=== PATIENT | male | born 1945 | race Caucasian/White ===

== ENCOUNTER 2018-04-21 10:57 | Emergency (ER) | payer OTHER ==
[~2018-04-21] VITALS: Ht 162.6 cm; Wt 77.1 kg
[~2018-04-21 10:57] MED LIST: FELODIPINE ER10 MG; ZOCOR5 MG
[2018-04-21] MEDS ORDERED: LOPRESSOR HCT1 EACH (11:32)
[2018-04-21] MEDS ORDERED: NORVASC10 MG (11:32)
== END 2018-04-21 18:16 | disposition home or self-care (01) ==
LOC: ER 10:57
DX: S90.31XA Contusion of right foot, initial encounter (principal); W18.39XA Other fall on same level, initial encounter; Y93.89 Activity, other specified; Y92.89 Other specified places as the place of occurrence of the external cause; Y99.8 Other external cause status

== ENCOUNTER 2025-04-12 11:20 | Inpatient (IN) | payer OTHER ==
[~2025-04-12] VITALS: Ht 152.4 cm; Wt 54.4 kg
[~2025-04-12 11:20] MED LIST changes: +LOPRESSOR HCT1 EACH; +NORVASC10 MG
--- NOTE | 2025-04-12 11:46 | NUR ---
PACIENTE ALERTA Y ORIENTADO X3 ACOMPANADO HIJA REFIERE DEBILIDAD, MAEROS Y DEFIFCULTAD EN LA DEGLUCION. SE MELANIE S/V Y SE UBICA.
[2025-04-12] MEDS ORDERED: 0.9 % SODIUM CHLORIDE 500 ML IV ONE (14:45)
[2025-04-12 15:35] LABS: BASO % 0.3 % (0.1-1.2); EOS # 0.08 (0.04-0.54); EOS % 0.8 % (0.7-7.0); LYMPH # 0.80 (1.18-3.74); LYMPH % 7.8 % (19.3-53.1); MEAN PLATELET VOLUME 8.90 fl (9.4-12.4); MONO # 0.66 (0.24-0.82); MONO % 6.4 % (4.7-12.5); NEUT # 8.65 (1.56-6.13); NEUT % 84.2 % (34.0-71.1); RED CELL DISTRIBUTION WIDTH 15.9 % (11.6-14.4)
[2025-04-12 15:56] LABS: COVID-19 AG NEGATIVE (NEGATIVE)
[2025-04-12 16:08] LABS: INR 1.11
--- NOTE | 2025-04-12 16:10 | NUR ---
SE EDUCA FAMILIAR SOBRE EL [place] MEDICO Y KERLINE REFIERE ENTENDER. PACIENTE CANALIZADO EN AMBULANCIA EN ANTEBRAZO DERECHO # 18 PATENTE Y CATHY DE DOLOR SE COLOCA IVFS. SE AYSE MUESTRAS DE LABORATORIOS Y SE ENVIAN. SE ENTREGA ENVASE DE U/A
[2025-04-12 16:16] LABS: ALT/SGPT 12.0 U/L (12-78); AST/SGOT 15.0 U/L (15-37); BILIRUBIN TOTAL 0.66 mg/dL (0.3-1.2); BUN CREA RATIO 30.0 (7.0-25.0); CREATININE SERUM 1.16 mg/dL (0.70-1.30); GFR 60.58; GLOBULINA 4.1 G/DL (2.4-3.5); GLUCOSE FASTING 97.0 mg/dL (65-100); OSMOLALITY SERUM 289.0 MOSM/KG (275-295)
[2025-04-12] MEDS ORDERED: PANTOPRAZOLE SODIUM 40 MG in 0.9 % SODIUM CHLORIDE 8 ML IV PUSH SCH (19:06)
[2025-04-12] MEDS ORDERED: CLOPIDOGREL BISULFATE 75 MG TABLET PO SCH (19:10)
[2025-04-12] MEDS ORDERED: ATORVASTATIN CALCIUM 40 MG TABLET PO SCH (19:11)
[2025-04-12] MEDS ORDERED: ONDANSETRON HCL 4 MG in DEXTROSE 5 % IN WATER 50 ML IV SCH (19:13)
[2025-04-12] MEDS ORDERED: DEXTROSE 5 %-0.45 % SOD CHLORD 1,000 ML IV SCH (19:15)
[2025-04-12] MEDS ORDERED: hydrALAZINE HCL 20 MG VIAL IV PRN (19:15)
[2025-04-12] MEDS ORDERED: MORPHINE SULFATE 2 MG/ML SYRINGE IV PRN (19:15)
[2025-04-12 21:00] VITALS: BP 110/70
[2025-04-12 21:42] LABS: URINE APPEARANCE Clear; URINE BILIRRUBIN Negative (NEGATIVE); URINE BLOOD Negative; URINE COLOR Yellow; URINE KETONE Trace (NEGATIVE); URINE LEUKOCYTE Negative; URINE NITRATE Negative; URINE PROTEIN Trace (NEGATIVE); URINE UROBILINOGEN 1.0 E.U./dl
[2025-04-12 21:46] LABS: URINE BACTERIA 9.5 uL (0.0-1933); URINE EPITHELIAL CELLS 4.7 uL (0.0-38.8); URINE RBC 3.0 uL (0.0-20.8); URINE WBC 3.6 uL (0.0-23.2)
[2025-04-12 21:49] LABS: URINE CAST 1.02 uL (0.0-1.40); URINE GLUCOSE 250 MG/DL (NEGATIVE)
[2025-04-13 07:00] VITALS: BP 121/61; O2SAT 100
[2025-04-14 03:02] VITALS: BP 127/73; O2SAT 98
[2025-04-14 09:24] VITALS: BP 138/71; O2SAT 95
[2025-04-14 18:15] VITALS: BP 144/76; O2SAT 97
[2025-04-14 19:14] LABS: BASO % 0.2 % (0.1-1.2); EOS # 0.02 (0.04-0.54); EOS % 0.1 % (0.7-7.0); LYMPH # 0.48 (1.18-3.74); LYMPH % 2.8 % (19.3-53.1); MEAN PLATELET VOLUME 8.80 fl (9.4-12.4); MONO # 0.78 (0.24-0.82); MONO % 4.6 % (4.7-12.5); NEUT # 15.61 (1.56-6.13); NEUT % 91.5 % (34.0-71.1); RED CELL DISTRIBUTION WIDTH 15.4 % (11.6-14.4)
[2025-04-15 00:25] VITALS: BP 126/78; O2SAT 99
[2025-04-15] MEDS ORDERED: ENOXAPARIN SODIUM 30 MG/0.3 ML SYRINGE SUBCUTANEO SCH (09:00)
[2025-04-15 10:04] VITALS: BP 130/71; O2SAT 91
[2025-04-15] MEDS ORDERED: CEFAZOLIN SODIUM 1,000 MG VIAL ONE (13:59)
[2025-04-15] MEDS ORDERED: LIDOCAINE HCL 1%/EPINEPHRINE 20ML VIAL IJ ONE ×2 (14:38)
[2025-04-15 20:25] VITALS: BP 123/74; O2SAT 95
[2025-04-16 03:59] VITALS: BP 134/75; O2SAT 97
[2025-04-16 10:04] VITALS: BP 132/87; O2SAT 95
[2025-04-16 20:40] VITALS: BP 152/75; O2SAT 96
[2025-04-16 21:47] VITALS: O2SAT 90
[2025-04-17] VITALS (7 sets, daily range): BP systolic 122–188; BP diastolic 60–90; O2SAT 88–99
[2025-04-17] MEDS ORDERED: ONDANSETRON HCL 2 MG/ML VIAL ONE (15:20)
== END 2025-04-17 20:00 | disposition home or self-care (01) | DRG 376 ==
LOC: ER 11:20 → SEC-K 20:46 → MEDI 20:46 → SEC-K 20:49 → MEDI 04-13 16:10
PROVIDERS: General Practice; Student in an Organized Health Care Education/Training Program; ADMIT Internal Medicine; ATTEND Internal Medicine
PROC: BW21ZZZ Computerized Tomography (CT Scan) of Abdomen and Pelvis (ICD-10-PCS; 2025-04-12)
PROC: 4A12X4Z Monitoring of Cardiac Electrical Activity, External Approach (ICD-10-PCS; 2025-04-13)
PROC: 30233N1 Transfusion of Nonautologous Red Blood Cells into Peripheral Vein, Percutaneous Approach (ICD-10-PCS; 2025-04-13)
PROC: 0DH60UZ Insertion of Feeding Device into Stomach, Open Approach (ICD-10-PCS; principal; 2025-04-15 14:15)
DX: C15.9 Malignant neoplasm of esophagus, unspecified (principal); D64.9 Anemia, unspecified; R13.19 Other dysphagia; I50.9 Heart failure, unspecified; I10 Essential (primary) hypertension

== ENCOUNTER 2025-05-11 13:07 | Inpatient (IN) | payer OTHER ==
[~2025-05-11] VITALS: Ht 165.1 cm; Wt 54.4 kg
[2025-05-11] MEDS ORDERED: 0.9 % SODIUM CHLORIDE 1,000 ML IV SCH (14:45)
[2025-05-11] MEDS ORDERED: ALBUTEROL SULFATE 3 ML/2.5 MG AMPUL.NEB IH SCH (15:00)
[2025-05-11] MEDS ORDERED: IPRATROPIUM BROMIDE 0.5 MG/2.5 ML AMPUL.NEB IH SCH ×2 (15:00→21:48)
[2025-05-11 16:18] LABS: BASO % 0.2 % (0.1-1.2); EOS # 0.01 (0.04-0.54); EOS % 0.1 % (0.7-7.0); LYMPH # 0.50 (1.18-3.74); LYMPH % 2.6 % (19.3-53.1); MEAN PLATELET VOLUME 8.50 fl (9.4-12.4); MONO # 1.51 (0.24-0.82); MONO % 8.0 % (4.7-12.5); NEUT # 16.74 (1.56-6.13); NEUT % 88.4 % (34.0-71.1); RED CELL DISTRIBUTION WIDTH 15.9 % (11.6-14.4)
[2025-05-11 16:25] LABS: INR 1.29
[2025-05-11 16:39] LABS: ALT/SGPT 145.0 U/L (12-78); AST/SGOT 188.0 U/L (15-37); BILIRUBIN TOTAL 0.49 mg/dL (0.3-1.2); CREATININE SERUM 1.78 mg/dL (0.70-1.30); GFR 36.96; GLOBULINA 5.1 G/DL (2.4-3.5); GLUCOSE FASTING 137.0 mg/dL (65-100)
[2025-05-11 16:46] LABS: BUN CREA RATIO 48.0 (7.0-25.0); OSMOLALITY SERUM 280.0 MOSM/KG (275-295)
[2025-05-11 16:49] LABS: URINE APPEARANCE Clear; URINE BILIRRUBIN Negative (NEGATIVE); URINE COLOR Yellow; URINE GLUCOSE Negative (NEGATIVE); URINE KETONE Negative (NEGATIVE); URINE LEUKOCYTE Negative; URINE NITRATE Negative; URINE PROTEIN Trace (NEGATIVE); URINE UROBILINOGEN 1.0 E.U./dl
[2025-05-11 16:53] LABS: URINE BACTERIA 8.3 uL (0.0-1933); URINE EPITHELIAL CELLS 12.4 uL (0.0-38.8); URINE RBC 16.5 uL (0.0-20.8); URINE WBC 3.8 uL (0.0-23.2)
[2025-05-11 17:10] LABS: COVID-19 AG NEGATIVE (NEGATIVE)
[2025-05-11 17:14] LABS: URINE CAST 1.17 uL (0.0-1.40)
[2025-05-11 17:19] LABS: URINE BLOOD Traces; URINE MUCUS SCANT
[2025-05-11 17:20] LABS: TYPE CELLS SQUAMOUS
[2025-05-11] MEDS ORDERED: CEFTRIAXONE SODIUM 2,000 MG VIAL IV ONE (19:45)
[2025-05-11] MEDS ORDERED: CEFTRIAXONE SODIUM 2,000 MG VIAL ONE (21:10)
[2025-05-11] MEDS ORDERED: ALBUMIN HUMAN-25 0.25GM/ML (50ML) VIAL IV SCH (21:49)
[2025-05-11] MEDS ORDERED: AZITHROMYCIN 500 MG in DEXTROSE 5 % IN WATER 250 ML IV SCH (21:50)
[2025-05-11] MEDS ORDERED: AMINO ACIDS/PROTEIN HYDROLYS 30 ML BLIST.PACK PO SCH (21:54)
[2025-05-11] MEDS ORDERED: ACETAMINOPHEN 500 MG GEL..CAP PO PRN (22:00)
[2025-05-11] MEDS ORDERED: DEXTROSE 50 % IN WATER 0.5 G/ML VIAL IV ONE (22:00)
[2025-05-11] MEDS ORDERED: INSULIN REGULAR, HUMAN 1,000 UNIT/10 ML UNITS IV ONE (22:00)
[2025-05-11] MEDS ORDERED: SODIUM POLYSTYRENE SULFONATE 30G/8 TSP PO ONE (22:00)
[2025-05-11] MEDS ORDERED: CALCIUM GLUCONATE 100 MG/ML VIAL IV ONE (22:00)
[2025-05-12] MEDS ORDERED: IPRATROPIUM BROMIDE 0.5 MG/2.5 ML AMPUL.NEB IH ONE ×3 (01:54→17:15)
[2025-05-12] MEDS ORDERED: SODIUM POLYSTYRENE SULFONATE 15 G/4 TSP TSP ONE (02:41)
[2025-05-12] MEDS ORDERED: CALCIUM GLUCONATE 100 MG/ML VIAL ONE (02:41)
[2025-05-12 05:25] LABS: INR 1.29
[2025-05-12 06:00] LABS: TSH 1.79 uIU/mL (0.358-3.74)
[2025-05-12 07:15] VITALS: BP 100/52; O2SAT 100
[2025-05-12] MEDS ORDERED: CEFTRIAXONE SODIUM 2,000 MG in 0.9 % SODIUM CHLORIDE 100 ML IV SCH (09:00)
[2025-05-12] MEDS ORDERED: PIPERACILLIN/TAZOBACTAM SODIUM 3.375 GM in DEXTROSE 5 % IN WATER 100 ML IV SCH (14:14)
[2025-05-12] MEDS ORDERED: FLUCONAZOLE IN NACL,ISO-OSM 200 MG/100 ML PIGGYBAG IV NR (15:30)
[2025-05-12] MEDS ORDERED: PIPERACILLIN/TAZOBACTAM SODIUM 3.375 GM VIAL IV ONE (16:55)
[2025-05-12 19:28] LABS: ob POSITIVE (NEGATIVE)
[2025-05-12 23:42] VITALS: BP 128/65; O2SAT 100
[2025-05-13] MEDS ORDERED: IPRATROPIUM BROMIDE 0.5 MG/2.5 ML AMPUL.NEB IH ONE ×2 (00:46→08:31)
[2025-05-13 08:55] VITALS: BP 100/60; O2SAT 100
[2025-05-13 10:17] LABS: BASO % 0.2 % (0.1-1.2); EOS # 0.03 (0.04-0.54); EOS % 0.1 % (0.7-7.0); LYMPH # 0.56 (1.18-3.74); LYMPH % 2.8 % (19.3-53.1); MEAN PLATELET VOLUME 8.40 fl (9.4-12.4); MONO # 0.95 (0.24-0.82); MONO % 4.7 % (4.7-12.5); NEUT # 18.37 (1.56-6.13); NEUT % 91.5 % (34.0-71.1); RED CELL DISTRIBUTION WIDTH 16.3 % (11.6-14.4)
[2025-05-13 11:07] LABS: ALT/SGPT 108.0 U/L (12-78); AST/SGOT 108.0 U/L (15-37); BILIRUBIN TOTAL 0.73 mg/dL (0.3-1.2); CREATININE SERUM 1.69 mg/dL (0.70-1.30); GFR 39.24; GLOBULINA 5.1 G/DL (2.4-3.5); GLUCOSE FASTING 76.0 mg/dL (65-100)
[2025-05-13 11:08] LABS: BUN CREA RATIO 56.0 (7.0-25.0); OSMOLALITY SERUM 290.0 MOSM/KG (275-295)
[2025-05-13] MEDS ORDERED: FLUCONAZOLE IN NACL,ISO-OSM 50 ML IV SCH (12:00)
[2025-05-13] MEDS ORDERED: FLUCONAZOLE IN NACL,ISO-OSM 2 MG/ML ML IV SCH (12:00)
[2025-05-13 13:24] VITALS: O2SAT 92
[2025-05-13 16:24] VITALS: O2SAT 95
[2025-05-13] MEDS ORDERED: VANCOMYCIN HCL 5 MG/ML REDILUIDO IV SCH (17:00)
[2025-05-13 18:47] VITALS: BP 114/68
[2025-05-13 18:48] VITALS: BP 114/68
[2025-05-13] MEDS ORDERED: MEROPENEM 500 MG/VIAL VIAL IV SCH (21:00)
[2025-05-13 21:20] VITALS: O2SAT 91
[2025-05-14] VITALS (9 sets, daily range): BP systolic 115–133; BP diastolic 55–67; O2SAT 88–100
[2025-05-14] MEDS ORDERED: AZITHROMYCIN 500 MG VIAL IV SCH (09:00)
[2025-05-14] MEDS ORDERED: AZITHROMYCIN 500 MG VIAL IV ONE (10:08)
[2025-05-14 14:03] LABS: BASO % 0.1 % (0.1-1.2); EOS # 0.04 (0.04-0.54); EOS % 0.2 % (0.7-7.0); LYMPH # 0.54 (1.18-3.74); LYMPH % 2.3 % (19.3-53.1); MEAN PLATELET VOLUME 8.50 fl (9.4-12.4); MONO # 1.33 (0.24-0.82); MONO % 5.7 % (4.7-12.5); NEUT # 21.10 (1.56-6.13); NEUT % 90.8 % (34.0-71.1); RED CELL DISTRIBUTION WIDTH 16.4 % (11.6-14.4)
[2025-05-14 14:23] LABS: BUN CREA RATIO 56.0 (7.0-25.0); CREATININE SERUM 1.7 mg/dL (0.70-1.30); GFR 38.97; GLUCOSE FASTING 115.0 mg/dL (65-100); OSMOLALITY SERUM 304.0 MOSM/KG (275-295)
[2025-05-15] VITALS (9 sets, daily range): BP systolic 105–148; BP diastolic 61–75; O2SAT 93–98
[2025-05-15] MEDS ORDERED: AZITHROMYCIN 500 MG VIAL IV ONE (08:06)
[2025-05-16] VITALS (9 sets, daily range): BP systolic 121–140; BP diastolic 70–76; O2SAT 90–100
[2025-05-16 07:55] LABS: BASO % 0.2 % (0.1-1.2); EOS # 0.12 (0.04-0.54); EOS % 0.7 % (0.7-7.0); LYMPH # 0.64 (1.18-3.74); LYMPH % 3.9 % (19.3-53.1); MEAN PLATELET VOLUME 8.50 fl (9.4-12.4); MONO # 1.23 (0.24-0.82); MONO % 7.5 % (4.7-12.5); NEUT # 14.22 (1.56-6.13); NEUT % 87.0 % (34.0-71.1); RED CELL DISTRIBUTION WIDTH 16.2 % (11.6-14.4)
[2025-05-16 08:33] LABS: ALT/SGPT 59.0 U/L (12-78); AST/SGOT 47.0 U/L (15-37); BILIRUBIN TOTAL 0.34 mg/dL (0.3-1.2); CREATININE SERUM 1.18 mg/dL (0.70-1.30); GFR 59.39; GLOBULINA 4.1 G/DL (2.4-3.5); GLUCOSE FASTING 145.0 mg/dL (65-100)
[2025-05-16 08:34] LABS: BUN CREA RATIO 71.0 (7.0-25.0); OSMOLALITY SERUM 317.0 MOSM/KG (275-295)
[2025-05-16] MEDS ORDERED: AZITHROMYCIN 500 MG VIAL IV ONE (08:34)
[2025-05-17] VITALS (9 sets, daily range): BP systolic 142–160; BP diastolic 72–74; O2SAT 65–100
[2025-05-17] MEDS ORDERED: POTASSIUM CHLORIDE/D5W 20 MEQ/1,000 ML PIGGYBAG IV SCH (12:00)
[2025-05-17 15:05] LABS: BUN CREA RATIO 83.0 (7.0-25.0); CREATININE SERUM 0.9 mg/dL (0.70-1.30); GFR 81.19; GLUCOSE FASTING 121.0 mg/dL (65-100); OSMOLALITY SERUM 316.0 MOSM/KG (275-295)
[2025-05-17] MEDS ORDERED: POTASSIUM CHLORIDE 20MEQ/100ML H2O PB IV SCH (18:00)
[2025-05-17] MEDS ORDERED: SODIUM CHLORIDE 0.45 % 1,000 ML IV SCH (18:15)
[2025-05-18] VITALS (9 sets, daily range): BP systolic 129–146; BP diastolic 70–77; O2SAT 96–100
[2025-05-18 06:44] LABS: BASO % 0.3 % (0.1-1.2); EOS # 0.14 (0.04-0.54); EOS % 1.0 % (0.7-7.0); LYMPH # 0.55 (1.18-3.74); LYMPH % 4.1 % (19.3-53.1); MEAN PLATELET VOLUME 8.60 fl (9.4-12.4); MONO # 1.04 (0.24-0.82); MONO % 7.7 % (4.7-12.5); NEUT # 11.63 (1.56-6.13); NEUT % 86.3 % (34.0-71.1); RED CELL DISTRIBUTION WIDTH 16.3 % (11.6-14.4)
[2025-05-18 08:06] LABS: ALT/SGPT 70.0 U/L (12-78); AST/SGOT 89.0 U/L (15-37); BILIRUBIN TOTAL 0.36 mg/dL (0.3-1.2); BUN CREA RATIO 74.0 (7.0-25.0); CREATININE SERUM 0.97 mg/dL (0.70-1.30); GFR 74.47; GLOBULINA 4.4 G/DL (2.4-3.5); GLUCOSE FASTING 141.0 mg/dL (65-100); OSMOLALITY SERUM 316.0 MOSM/KG (275-295)
[2025-05-18] MEDS ORDERED: FLUCONAZOLE IN NACL,ISO-OSM 200 MG/100 ML PIGGYBAG IV NR (14:00)
[2025-05-19] VITALS (11 sets, daily range): BP systolic 132–136; BP diastolic 74–87; O2SAT 90–99
[2025-05-19] MEDS ORDERED: ACETYLCYSTEINE 200 MG/ML 30ML VIAL IH SCH (12:00)
[2025-05-19] MEDS ORDERED: ALBUTEROL SULFATE 3 ML/2.5 MG AMPUL.NEB IH SCH (12:00)
[2025-05-19] MEDS ORDERED: MEROPENEM 500 MG/VIAL VIAL IV SCH (14:00)
[2025-05-19] MEDS ORDERED: METOPROLOL TARTRATE 5MG/5ML AMPUL IV PRN (23:45)
[2025-05-19] MEDS ORDERED: METOPROLOL TARTRATE 5MG/5ML AMPUL IV STA (23:53)
[2025-05-20] VITALS (14 sets, daily range): BP systolic 113–146; BP diastolic 76–100; O2SAT 95–100
[2025-05-20] MEDS ORDERED: NOREPINEPHRINE BITARTRATE 1 MG/ML AMPUL IV ONE (07:26)
[2025-05-20] MEDS ORDERED: CHLORHEXIDINE GLUCONATE 15ML BRUSH KIT MM SCH (09:00)
[2025-05-20] MEDS ORDERED: POLYVINYL ALCOHOL 15 ML DROPS OP SCH (09:00)
[2025-05-20] MEDS ORDERED: EPINEPHRINE HCL/PF 1 MG/ML AMPUL IV SCH (09:30)
[2025-05-20 11:18] LABS: BASO % 0.2 % (0.1-1.2); EOS # 0.01 (0.04-0.54); EOS % 0.1 % (0.7-7.0); LYMPH # 0.28 (1.18-3.74); LYMPH % 1.7 % (19.3-53.1); MEAN PLATELET VOLUME 9.70 fl (9.4-12.4); MONO # 0.32 (0.24-0.82); MONO % 2.0 % (4.7-12.5); NEUT # 15.53 (1.56-6.13); NEUT % 94.6 % (34.0-71.1); RED CELL DISTRIBUTION WIDTH 17.8 % (11.6-14.4)
[2025-05-20 12:28] LABS: ALT/SGPT 160.0 U/L (12-78); AST/SGOT 253.0 U/L (15-37); BILIRUBIN TOTAL 0.44 mg/dL (0.3-1.2); BUN CREA RATIO 60.0 (7.0-25.0); CREATININE SERUM 1.29 mg/dL (0.70-1.30); GFR 53.59; GLOBULINA 5.1 G/DL (2.4-3.5); GLUCOSE FASTING 165.0 mg/dL (65-100); OSMOLALITY SERUM 319.0 MOSM/KG (275-295)
[2025-05-20] MEDS ORDERED: DILTIAZEM HCL 125MG/25ML VIAL IV ONE (14:06)
[2025-05-20] MEDS ORDERED: DILTIAZEM HCL 125 MG in 0.9 % SODIUM CHLORIDE 100 ML IV SCH (14:30)
[2025-05-21] VITALS (24 sets, daily range): BP systolic 111–153; BP diastolic 71–852; O2SAT 97–100
[2025-05-21 06:58] LABS: BASO % 0.2 % (0.1-1.2); EOS # 0.00 (0.04-0.54); EOS % 0.0 % (0.7-7.0); LYMPH # 0.53 (1.18-3.74); LYMPH % 2.7 % (19.3-53.1); MEAN PLATELET VOLUME 10.50 fl (9.4-12.4); MONO # 1.22 (0.24-0.82); MONO % 6.2 % (4.7-12.5); NEUT # 17.83 (1.56-6.13); NEUT % 90.2 % (34.0-71.1); RED CELL DISTRIBUTION WIDTH 17.8 % (11.6-14.4)
[2025-05-21 07:40] LABS: BUN CREA RATIO 71.0 (7.0-25.0); CREATININE SERUM 1.39 mg/dL (0.70-1.30); GFR 49.16; GLUCOSE FASTING 135.0 mg/dL (65-100); OSMOLALITY SERUM 322.0 MOSM/KG (275-295)
[2025-05-21] MEDS ORDERED: MEROPENEM 500 MG/VIAL VIAL IV SCH (21:00)
[2025-05-22] VITALS (23 sets, daily range): BP systolic 91–132; BP diastolic 57–84; O2SAT 92–100
[2025-05-23] VITALS (24 sets, daily range): BP systolic 103–130; BP diastolic 65–78; O2SAT 97–100
[2025-05-24] VITALS (22 sets, daily range): BP systolic 81–134; BP diastolic 57–81; O2SAT 97–100
[2025-05-24 06:52] LABS: BASO % 0.0 % (0.1-1.2); EOS # 0.00 (0.04-0.54); EOS % 0.0 % (0.7-7.0); LYMPH # 0.32 (1.18-3.74); LYMPH % 1.4 % (19.3-53.1); MEAN PLATELET VOLUME 11.30 fl (9.4-12.4); MONO # 1.04 (0.24-0.82); MONO % 4.6 % (4.7-12.5); NEUT # 21.12 (1.56-6.13); NEUT % 93.3 % (34.0-71.1); RED CELL DISTRIBUTION WIDTH 18.2 % (11.6-14.4)
[2025-05-24 07:21] LABS: ALT/SGPT 79.0 U/L (12-78); AST/SGOT 75.0 U/L (15-37); BILIRUBIN TOTAL 0.48 mg/dL (0.3-1.2); CREATININE SERUM 2.92 mg/dL (0.70-1.30); GFR 20.88; GLOBULINA 4.6 G/DL (2.4-3.5); GLUCOSE FASTING 143.0 mg/dL (65-100)
[2025-05-24 07:41] LABS: BUN CREA RATIO 56.0 (7.0-25.0); OSMOLALITY SERUM 350.0 MOSM/KG (275-295)
[2025-05-24] MEDS ORDERED: SODIUM POLYSTYRENE SULFONATE 30G/8 TSP PO SCH (18:00)
[2025-05-25] VITALS (22 sets, daily range): BP systolic 63–126; BP diastolic 41–77; O2SAT 97–100
[2025-05-25 07:33] LABS: BASO % 0.2 % (0.1-1.2); EOS # 0.00 (0.04-0.54); EOS % 0.0 % (0.7-7.0); LYMPH # 0.28 (1.18-3.74); LYMPH % 0.9 % (19.3-53.1); MEAN PLATELET VOLUME 11.60 fl (9.4-12.4); MONO # 1.31 (0.24-0.82); MONO % 4.1 % (4.7-12.5); NEUT # 29.83 (1.56-6.13); NEUT % 93.9 % (34.0-71.1); RED CELL DISTRIBUTION WIDTH 18.4 % (11.6-14.4)
[2025-05-25] MEDS ORDERED: NOREPINEPHRINE BITARTRATE 8 MG in DEXTROSE 5 % IN WATER 250 ML IV SCH (08:30)
[2025-05-25] MEDS ORDERED: DILTIAZEM HCL 125 MG in 0.9 % SODIUM CHLORIDE 100 ML IV SCH (13:00)
[2025-05-25] MEDS ORDERED: MEROPENEM 500 MG/VIAL VIAL IV SCH (21:00)
[2025-05-25] MEDS ORDERED: AMIODARONE HCL 900 MG/500 ML KIT IV ONE (22:07)
[2025-05-25] MEDS ORDERED: AMIODARONE HCL 900 MG in DEXTROSE 5 % IN WATER 500 ML IV SCH (22:15)
[2025-05-26] VITALS (25 sets, daily range): BP systolic 77–110; BP diastolic 35–63; O2SAT 93–100
[2025-05-26 07:43] LABS: URINE APPEARANCE Cloudy; URINE BILIRRUBIN Negative (NEGATIVE); URINE BLOOD Large; URINE COLOR Dark Yellow; URINE GLUCOSE Negative (NEGATIVE); URINE KETONE Trace (NEGATIVE); URINE LEUKOCYTE Small; URINE NITRATE Negative; URINE PROTEIN 30 (NEGATIVE); URINE UROBILINOGEN 0.2 E.U./dl
[2025-05-26 07:47] LABS: URINE BACTERIA 555.9 uL (0.0-1933); URINE CAST 4.10 uL (0.0-1.40); URINE EPITHELIAL CELLS 23.3 uL (0.0-38.8); URINE RBC 50.0 uL (0.0-20.8); URINE WBC 129.5 uL (0.0-23.2)
[2025-05-26 08:04] LABS: TYPE CELLS SQUAMOUS
[2025-05-26 08:05] LABS: URINE CRYSTALS MANY /HPF
[2025-05-26] MEDS ORDERED: AMIODARONE HCL 518 ML IV SCH (09:00)
[2025-05-27] VITALS (27 sets, daily range): BP systolic 66–121; BP diastolic 38–95; O2SAT 94–100
[2025-05-27] MEDS ORDERED: PHENYLEPHRINE HCL 10 MG/ML AMPUL ONE ×3 (03:53→20:57)
[2025-05-27] MEDS ORDERED: PHENYLEPHRINE HCL 20 MG in 0.9 % SODIUM CHLORIDE 250 ML IV SCH (04:15)
[2025-05-27] MEDS ORDERED: PHENYLEPHRINE HCL 80 MG in 0.9 % SODIUM CHLORIDE 1,000 ML IV SCH (10:30)
[2025-05-27 12:28] LABS: BASO % 0.2 % (0.1-1.2); EOS # 0.00 (0.04-0.54); EOS % 0.0 % (0.7-7.0); LYMPH # 0.34 (1.18-3.74); LYMPH % 1.4 % (19.3-53.1); MEAN PLATELET VOLUME 11.60 fl (9.4-12.4); MONO # 1.04 (0.24-0.82); MONO % 4.2 % (4.7-12.5); NEUT # 23.20 (1.56-6.13); NEUT % 92.8 % (34.0-71.1); RED CELL DISTRIBUTION WIDTH 18.2 % (11.6-14.4)
[2025-05-27 13:36] LABS: GFR 13.91; GLUCOSE FASTING 135.0 mg/dL (65-100)
[2025-05-27 13:38] LABS: BUN CREA RATIO 49.0 (7.0-25.0); OSMOLALITY SERUM 352.0 MOSM/KG (275-295)
[2025-05-27 13:40] LABS: CREATININE SERUM 4.15 mg/dL (0.70-1.30)
[2025-05-27] MEDS ORDERED: SODIUM POLYSTYRENE SULFONATE 30G/8 TSP NGT NR (14:00)
[2025-05-27] MEDS ORDERED: FLUCONAZOLE IN NACL,ISO-OSM 200 MG/100 ML PIGGYBAG IV NR (16:15)
[2025-05-27] MEDS ORDERED: FLUCONAZOLE IN NACL,ISO-OSM 2 MG/ML ML IV SCH (17:00)
[2025-05-28] VITALS (21 sets, daily range): BP systolic 71–111; BP diastolic 18–68; O2SAT 75–100
[2025-05-28] MEDS ORDERED: DOPamine HCL IN DEXTROSE 5 % 250 ML IV SCH (02:15)
[2025-05-28] MEDS ORDERED: PHENYLEPHRINE HCL 10 MG/ML AMPUL ONE ×3 (04:38→16:44)
[2025-05-28] MEDS ORDERED: NOREPINEPHRINE BITARTRATE 1 MG/ML AMPUL IV ONE (04:39)
[2025-05-28] MEDS ORDERED: NOREPINEPHRINE BITARTRATE 16 MG in DEXTROSE 5 % IN WATER 500 ML IV SCH (08:30)
[2025-05-28] MEDS ORDERED: FLUCONAZOLE IN NACL,ISO-OSM 50 ML IV SCH (12:00)
[2025-05-28] MEDS ORDERED: ANIDULAFUNGIN 100 MG VIAL IV NR (16:30)
[2025-05-28] MEDS ORDERED: AA 2.36%/D6.8W/FAT/E-LYTES NO9 1,440 ML IV SCH (17:00)
[2025-05-29] MEDS ORDERED: ANIDULAFUNGIN 100 MG VIAL IV SCH (12:00)
== END 2025-05-29 06:41 | disposition expired | DRG 207 ==
LOC: ER 13:07 → SEC-K 21:57 → MEDJ 05-13 11:21 → ICU 05-20 14:10
PROVIDERS: General Practice; Internal Medicine; Internal Medicine Infectious Disease; ADMIT Internal Medicine; ATTEND Internal Medicine
PROC: BB24ZZZ Computerized Tomography (CT Scan) of Bilateral Lungs (ICD-10-PCS; 2025-05-11)
PROC: B246ZZZ Ultrasonography of Right and Left Heart (ICD-10-PCS; 2025-05-11)
PROC: 30233N1 Transfusion of Nonautologous Red Blood Cells into Peripheral Vein, Percutaneous Approach (ICD-10-PCS; 2025-05-12)
PROC: 4A12X4Z Monitoring of Cardiac Electrical Activity, External Approach (ICD-10-PCS; 2025-05-13)
PROC: BB24ZZZ Computerized Tomography (CT Scan) of Bilateral Lungs (ICD-10-PCS; 2025-05-19)
PROC: 5A1955Z Respiratory Ventilation, Greater than 96 Consecutive Hours (ICD-10-PCS; principal; 2025-05-20)
PROC: 3E0F7GC Introduction of Other Therapeutic Substance into Respiratory Tract, Via Natural or Artificial Opening (ICD-10-PCS; 2025-05-20)
PROC: 0BH18EZ Insertion of Endotracheal Airway into Trachea, Via Natural or Artificial Opening Endoscopic (ICD-10-PCS; 2025-05-20)
PROC: BW28ZZZ Computerized Tomography (CT Scan) of Head (ICD-10-PCS; 2025-05-21)
PROC: 02HV33Z Insertion of Infusion Device into Superior Vena Cava, Percutaneous Approach (ICD-10-PCS; 2025-05-21)
DX: J69.0 Pneumonitis due to inhalation of food and vomit (principal); I50.23 Acute on chronic systolic (congestive) heart failure; R65.21 Severe sepsis with septic shock; J90 Pleural effusion, not elsewhere classified; C15.9 Malignant neoplasm of esophagus, unspecified; C78.00 Secondary malignant neoplasm of unspecified lung; I13.0 Hypertensive heart and chronic kidney disease with heart failure and stage 1 through stage 4 chronic kidney disease, or unspecified chronic kidney disease; N17.8 Other acute kidney failure; B37.0 Candidal stomatitis; N18.9 Chronic kidney disease, unspecified; D63.0 Anemia in neoplastic disease; E86.0 Dehydration; E87.5 Hyperkalemia; E78.49 Other hyperlipidemia; D72.828 Other elevated white blood cell count; R09.2 Respiratory arrest; I12.9 Hypertensive chronic kidney disease with stage 1 through stage 4 chronic kidney disease, or unspecified chronic kidney disease